=== PATIENT | male | born 1975 | race African-American/Black ===

== ENCOUNTER 2016-08-05 11:30 | Emergency (ER) | payer SELFPAY ==
[~2016-08-05] VITALS: Ht 172.7 cm; Wt 99.0 kg
[2016-08-05] MEDS ORDERED: KETOROLAC 30MG/ML VIAL IM ONE (12:30)
[2016-08-05] MEDS ORDERED: CYCLOBENZAPRINE 10MG TABLET PO ONE (12:30)
[2016-08-05 12:34] VITALS: BP 126/79
== END 2016-08-05 13:24 | disposition home or self-care (01) ==
LOC: ER 13:05
DX: S30.0XXA Contusion of lower back and pelvis, initial encounter (principal); I10 Essential (primary) hypertension; F17.210 Nicotine dependence, cigarettes, uncomplicated; X50.0XXA Overexertion from strenuous movement or load, initial encounter; Y93.F2 Activity, caregiving, lifting; Y92.230 Patient room in hospital as the place of occurrence of the external cause
CPT/HCPCS: 96372; 99283; J1885